=== PATIENT | male | born 1990 | race American Indian/Alaskan Native ===

== ENCOUNTER 2017-10-05 04:34 | Emergency (ER) | payer MEDICAID ==
[2017-10-05 05:25] LABS: Hemoglobin 15.2 gm/dl (11.8-15.2); Mean Corpuscular HGB Conc 34 % (32-34); Mean Corpuscular Hemoglobin 33 pg (28-32); Mean Corpuscular Volume 96 fl (84-94); Platelet Count 324 K/mm3 (140-440); Red Blood Count 4.67 M/mm3 (3.65-5.03); Red Cell Distribution Width 14.7 % (13.2-15.2); White Blood Count 18.7 K/mm3 (4.5-11.0)
[2017-10-05 05:44] LABS: Anion Gap 21 mmol/L; BUN/Creatinine Ratio 8; Blood Urea Nitrogen 7 mg/dL (9-20); Carbon Dioxide 20 mmol/L (22-30); Chloride 102.2 mmol/L (98-107); Glucose 119 mg/dL (75-100); Sodium 139 mmol/L (137-145)
[2017-10-05 07:05] LABS: Anisocytosis 1+; Basophils % (Manual) 0 % (0.0-1.8); Blastocytes % (Manual) 0 %; Diff Status Complete; Eosinophils % (Manual) 0 % (0.0-4.3); Platelet Estimate Consistent w Auto
[2017-10-05] MEDS ORDERED: ZOFRAN IV ONE (09:10)
[2017-10-05] MEDS ORDERED: TORADOL IV ONE (09:11)
[2017-10-05] MEDS ORDERED: NACL 0.9% 1000 ML 1,000 ML IV ONE (09:13)
--- NOTE | 2017-10-05 09:18 | Emergency Department Report ---
HPI - General Chief Complaint: Nausea/Vomiting/Diarrhea Time Seen by Provider: 10/05/17 08:18 - HPI HPI: The patient is a 26 yo male whom presents for evaluation of vomiting and diarrhea. The patient is accompanied by his mother who provides history of present illness. They state that since last night the patient has experienced a mild abdominal pain, currently 2/10 in severity, ramping in quality, generalized, worse in with retching, and associated with nausea and multiple episodes of nonbilious, nonbloody emesis and loose watery stools. The patient denies fever, chills, night sweats, blood in the stool, dark tarry stool, flank pain, genital discharge, inability to pass flatus. ED Past Medical Hx - Past Medical History Previous Medical History?: Yes Additional medical history: Joshua syndrome - Surgical History Past Surgical History?: No - Social History Smoking Status: Never Smoker Substance Use Type: None - Medications Home Medications: Home Medications Medication Instructions Recorded Confirmed Last Taken Type Acetaminophen/Codeine [Tylenol #3] 1 tab PO Q6H PRN #10 tab 10/05/17 Unknown Rx Cephalexin [Keflex] 500 mg PO Q6HR #30 capsule 10/05/17 Unknown Rx Ondansetron [Zofran TAB] 4 mg PO Q8HR PRN #20 tablet 10/05/17 Unknown Rx ED Review of Systems ROS: Stated complaint: VOMITING,DIARRHEA Other details as noted in HPI Constitutional: denies: fever ENT: denies: throat or neck pain Respiratory: denies: cough, shortness of breath Cardiovascular: denies: chest pain Endocrine: denies unexplained weight loss or gain Gastrointestinal: reports abdominal pain, nausea, vomiting, diarrhea Genitourinary: denies: dysuria Musculoskeletal: denies: leg swelling Skin: denies: rash Neurological: denies: headache Hematological/Lymphatic: denies: easy bleeding or easy bruising Psych: denies sadness or hopelessness Physical Exam - Physical Exam Vital Signs: Vital Signs 10/05/17 10/05/17 04:46 06:20 Temperature 97.4 F L Pulse Rate 61 Respiratory 16 16 Rate Blood Pressure 111/56 Blood Pressure 111/56 [Right] O2 Sat by Pulse 100 100 Oximetry Physical Exam: General: well-nourished, well-developed, no acute distress Head: Normocephalic, atraumatic Eyes: normal sclera ENT: Mucous membranes are pale and dry Neck: trachea midline, neck supple, No neck stiffness, no cervical adenopathy Respiratory: Breath sounds equal bilaterally, no wheezing, rales, or rhonchi Cardio: S1 and S2 present, no murmurs, rubs, gallops, capillary refill is delayed Abdomen: Normoactive bowel sounds, soft abdomen, no left lower quadrant and left upper quadrant tenderness to palpation present, no pain in McBurney's point , no rigidity, no guarding or rebound tenderness Chest WALL/Back: No tenderness to palpation of the chest wall, no CVA tenderness with percussion Musc: No pitting edema Skin: No rash Neuro: no facial drooping, normal speech Psych: Normal affect ED Course Vital Signs 10/05/17 10/05/17 04:46 06:20 Temperature 97.4 F L Pulse Rate 61 Respiratory 16 16 Rate Blood Pressure 111/56 Blood Pressure 111/56 [Right] O2 Sat by Pulse 100 100 Oximetry ED Medical Decision Making - Lab Data Result diagrams: 10/05/17 05:11 10/05/17 05:11 - Medical Decision Making The patient was seen and examined by myself. The patient is placed on a electronic device monitor and continuous pulse ox. On initial evaluation, the patient was found to be in no distress. Evaluation orders are placed. IV access is established and the patient is given 1 L normal saline fluid bolus and Zofran for nausea, and IV toradol for pain. Lab results revealed mild leukocytosis of 18, and elevated urine WBC were positive leukocyte esterase and bacteria, consistent with acute urinary tract infection. Otherwise labs Were non- concerning including WBC, hemoglobin, hematocrit, electrolytes, renal function, LFTs, lipase, and urinalysis. The patient is given Keflex for treatment of urinary tract infection. The patient was reevaluated and reported that their symptoms were markedly improved. On reexamination the patient remains without any right lower quadrant tenderness whatsoever. As patient has no right lower quadrant tenderness, is afebrile, has normal heart rate, appendicitis etiology is unlikely at this time. The patient is stable for discharge with outpatient follow-up. The patient's mother is given follow-up and return instructions, she expresses understanding and agreed with the plan. The patient is discharged in stable condition. Critical care attestation.: If time is entered above; I have spent that time in minutes in the direct care of this critically ill patient, excluding procedure time. ED Disposition Clinical Impression: Abdominal pain, acute, left lower quadrant, Dehydration, mild, Nausea and vomiting in adult, Acute lower UTI (urinary tract infection) Diarrhea Qualifiers: Diarrhea type: unspecified type Qualified Code(s): R19.7 - Diarrhea, unspecified Disposition: TO HOME OR SELFCARE Is pt being admited?: No Does the pt Need Aspirin: No Condition: Stable Instructions: Gastroenteritis (ED), Acute Nausea and Vomiting (ED), Food Poisoning (ED), Minocycline, Regular Release (By mouth), Nutrition Tips for Relief of Diarrhea (ED), Urinary Tract Infection in Men (ED) Referrals: PRIMARY CARE, [Primary Care Provider] - 3-5 Days [facility] [Outside] - 3-5 Days Time of Disposition: 09:14
[2017-10-05 09:49] LABS: Bacteria,Urine 2+ /HPF (Negative); Bilirubin,Urine NEG (Negative); Blood,Urine MOD (Negative); Ketones,Urine 20 mg/dL (Negative); Leukocyte Esterase,Urine TR (Negative); Mucus,Urine FEW /HPF; Nitrite,Urine NEG (Negative); Urobilinogen,Urine < 2.0 mg/dL (<2.0)
[2017-10-05] MEDS ORDERED: LEVAQUIN PO ONE (10:15)
[2017-10-05 10:39] VITALS: BP 110/60
== END 2017-10-05 11:20 | disposition home or self-care (01) ==
LOC: ED 04:34
DX: N39.0 Urinary tract infection, site not specified (principal); R10.32 Left lower quadrant pain; E86.0 Dehydration; R19.7 Diarrhea, unspecified
CPT/HCPCS: 36415; 80048; 81001; 85007; 85025; 96361; 96374; 96375; 99284; J1885; J2405; J7030